=== PATIENT | female | born 1930 | race Caucasian/White ===

== ENCOUNTER 2016-04-22 12:25 | Inpatient (IN) | payer MEDICARE ==
--- NOTE | 2016-04-22 13:34 | XR ---
EXAMINATION TYPE: XR chest 1V portable DATE OF EXAM: 04/22/2016 1:21 PM COMPARISON: Prior chest x-ray 22 January 2015 HISTORY: Dysrhythmia, shortness of breath TECHNIQUE: Single frontal view of the chest is obtained. FINDINGS: Heart is enlarged. There are overlying cardiac leads. Basilar increased density present in the retrocardiac location. There is no evident pneumothorax. Pulmonary vascularity and efrem are stab le. Interstitium is prominent. Focal density present in the right mid lung as on prior exam consisten t with old granulomatous disease. IMPRESSION: Correlate for left lower lobe atelectasis versus pneumonia. There may be underlying COPD . Difficult to exclude pulmonary venous hypertension and interstitial edema.
[2016-04-22] MEDS ORDERED: ENOXAPARIN 80 MG/0.8 ML SYRINGE SQ STA (13:39)
[2016-04-22] MEDS ORDERED: DILTIAZEM 5 MG/ML 5 ML VIAL IVP STA (13:40)
[2016-04-22 13:55] LABS: Basophils % (A) 1 %; Eosinophils # (A) 0.1 k/uL (0-0.7); Eosinophils % (A) 1 %; HCT 43.2 % (34.0-46.0); HDW 2.85; HGB 13.8 gm/dL (11.4-16.0); Luc # (Auto) 0.16; Luc % (Auto) 3; Lymphocytes # (A) 1.1 k/uL (1.0-4.8); Lymphocytes % (A) 18 %; MCH 29.1 pg (25.0-35.0); MCHC 31.9 g/dL (31.0-37.0); MCV 91.5 fL (80.0-100.0); Mean Platelet Volume 9.2; Monocytes # (A) 0.5 k/uL (0-1.0); Monocytes % (A) 8 %; Neutrophils # (A) 4.2 k/uL (1.3-7.7); Neutrophils % (A) 69 %; RBC 4.72 m/uL (3.80-5.40); RDW 15.4 % (11.5-15.5); WBC (Perox) 5.84
[2016-04-22 14:05] LABS: ALT 48 U/L (9-52); AST 41 U/L (14-36); Alkaline Phosphatase 94 U/L (38-126); Anion Gap 11 mmol/L; Blood Urea Nitrogen 29 mg/dL (7-17); Calcium 9.6 mg/dL (8.4-10.2); Carbon Dioxide 24 mmol/L (22-30); Chloride 109 mmol/L (98-107); Glucose 106 mg/dL (74-99); INR 1.1 (<1.1); Magnesium 1.8 mg/dL (1.6-2.3); Non-African American GFR(MDRD) 54 (>60 ml/min/1.73 sqM); Partial Thromboplastin Time 23.5 sec (22.0-30.0); Potassium 4.4 mmol/L (3.5-5.1); Prothrombin Time 10.7 sec (9.0-12.0); Sodium 144 mmol/L (137-145); Total Bilirubin 0.7 mg/dL (0.2-1.3); Total Protein 6.5 g/dL (6.3-8.2)
[2016-04-22] MEDS: DILTIAZEM 125 MG in SODIUM CHLORIDE 0.9% 100 ML IV ONE (14:13)
--- NOTE | 2016-04-22 15:12 | ED ---
Arrhythmia/Palpitations HPI - General Chief Complaint: Arrhythmia/Palpitations Stated Complaint: Palpitations Time Seen by Provider: 04/22/16 12:36 Source: patient Mode of arrival: wheelchair Limitations: no limitations - History of Present Illness Initial Comments: Patient is a 5-year-old woman who presents to be evaluated for a number of symptoms the most prominent which are generalized weakness and fatigue as well as shortness of breath. She also has been feeling a racing heartbeat at times. The symptoms have been going on last night though she states she may have been having episodes of this for the past few days intermittently. She has not had chest pain, diaphoresis, nausea or vomiting or syncope. MD Complaint: rapid heart beat -: hour(s) Context: occurred during exertion - Related Data Home Medications Medication Instructions Recorded Confirmed Biotin 5 mg PO DAILY 08/22/13 04/22/16 Calcium/Magnesium/Zinc 1 tab PO DAILY 08/22/13 04/22/16 [Ekqeglc-Nlzyxvrzg-Ujro Tablet] Lutein 10 mg PO DAILY 08/22/13 04/22/16 Multivitamins, Thera [Multivitamin] 1 tab PO DAILY 08/22/13 04/22/16 Ubidecarenone [Coenzyme Q10] 100 mg PO DAILY 08/22/13 04/22/16 Aspirin EC [Ecotrin Low Dose] 81 mg PO DAILY 04/22/16 04/22/16 Ginkgo Biloba [place] Extract [Ginkgo] 60 mg PO DAILY 04/22/16 04/22/16 Mirtazapine [Remeron] 15 mg PO HS 04/22/16 04/22/16 Previous Rx's Medication Instructions Recorded Atorvastatin [Lipitor] 80 mg PO HS #30 tab 08/30/13 Furosemide [Lasix] 20 mg PO BID #60 tablet 08/30/13 Lisinopril [Zestril] 5 mg PO DAILY #30 tab 08/30/13 Metoprolol Tartrate [Lopressor] 50 mg PO BID #60 tab 08/30/13 Potassium Chloride ER [K-Dur 20] 20 meq PO DAILY #30 tab.er.prt 08/30/13 Allergies Allergy/AdvReac Type Severity Reaction Status Date / Time No Known Allergies Allergy Verified 04/22/16 12:44 Review of Systems ROS Statement: Those systems with pertinent positive or pertinent negative responses have been documented in the HPI. ROS Other: All systems not noted in ROS Statement are negative. Constitutional: Reports: weakness. Denies: fever, chills Respiratory: Reports: dyspnea. Denies: cough, hemoptysis Cardiovascular: Reports: palpitations, dyspnea on exertion. Denies: chest pain , edema, syncope Gastrointestinal: Denies: abdominal pain, nausea, vomiting, diarrhea, melena, hematochezia Genitourinary: Denies: dysuria, hematuria Musculoskeletal: Denies: back pain Skin: Denies: rash Neurological: Denies: headache, weakness, numbness Past Medical History Past Medical History: Asthma, Hearing Disorder / Deafness, Hyperlipidemia, Hypertension Additional Past Medical History / Comment(s): Kidney infection History of Any Multi-Drug Resistant Organisms: None Reported Past Surgical History: Bladder Surgery, Hysterectomy, Tonsillectomy Additional Past Surgical History / Comment(s): Cataract removal with implants, colonoscopy Past Anesthesia/Blood Transfusion Reactions: No Reported Reaction Past Psychological History: Anxiety Smoking Status: Never smoker Past Alcohol Use History: None Reported Past Drug Use History: None Reported - Past Family History Mother Family Medical History: Cancer Father Additional Family Medical History / Comment(s): IN SLEEP IN [facility] Sister(s) Family Medical History: Seizure Disorder General Exam Limitations: no limitations General appearance: alert, in no apparent distress Head exam: Present: atraumatic, normocephalic Eye exam: Present: normal appearance. Absent: scleral icterus, conjunctival injection Neck exam: Present: normal inspection Respiratory exam: Present: normal lung sounds bilaterally. Absent: respiratory distress, wheezes, rales, rhonchi, stridor Cardiovascular Exam: Present: tachycardia, irregular rhythm, normal heart sounds. Absent: systolic murmur, diastolic murmur, rubs, gallop GI/Abdominal exam: Present: soft. Absent: tenderness, guarding, rebound, mass, pulsatile mass Extremities exam: Present: normal inspection, normal capillary refill. Absent: pedal edema, calf tenderness Back exam: Present: normal inspection. Absent: CVA tenderness (R), CVA tenderness (L) Neurological exam: Present: alert. Absent: motor sensory deficit Skin exam: Present: warm, dry, intact, normal color. Absent: rash, cyanosis, diaphoretic, pallor, mottled Course Vital Signs 04/22/16 04/22/1617 12:27 14:15 14:25 Temperature 97.8 F Pulse Rate 104 H 115 H 92 Respiratory 18 18 18 Rate Blood Pressure 146/91 162/91 153/72 O2 Sat by Pulse 95 97 97 Oximetry 04/22/16 15:20 Temperature Pulse Rate 89 Respiratory 18 Rate Blood Pressure 147/71 O2 Sat by Pulse 98 Oximetry EKG Findings - EKG Results: EKG: interpreted by ERMD, normal axis, normal QRS EKG shows: atrial fibrillation (Rate approximately 101 bpm) - Blocks, [place], Hypertrophy, ST Abn: Repolarization changes or abnormalities: ST or T wave suggestive of ischemia ( Inferolateral) Medical Decision Making - Medical Decision Making Patient is an 85-year-old woman with fatigue, palpitations and exertional dyspnea, found to have atrial fibrillation. The rate was rapid. Started on Cardizem which controlled her rate. In discussions with the patient she does not recall any previous atrial fibrillation. Discussed the case with the patient's physician who does indicate she has had previous paroxysms of atrial fibrillation. - Lab Data Result diagrams: 04/22/16 13:01 04/22/16 13:01 Lab Results 04/22/16 04/22/16 04/22/16 Range/Units 13:01 13:01 13:01 WBC 6.0 (3.8-10.6) k/uL RBC 4.72 (3.80-5.40) m/uL Hgb 13.8 (11.4-16.0) gm/dL Hct 43.2 (34.0-46.0) % MCV 91.5 (80.0-100.0) fL MCH 29.1 (25.0-35.0) pg MCHC 31.9 (31.0-37.0) g/dL RDW 15.4 (11.5-15.5) % Plt Count 160 (150-450) k/uL Neutrophils % 69 % Lymphocytes % 18 % Monocytes % 8 % Eosinophils % 1 % Basophils % 1 % Neutrophils # 4.2 (1.3-7.7) k/uL Lymphocytes # 1.1 (1.0-4.8) k/uL Monocytes # 0.5 (0-1.0) k/uL Eosinophils # 0.1 (0-0.7) k/uL Basophils # 0.0 (0-0.2) k/uL PT 10.7 (9.0-12.0) sec INR 1.1 (<1.1) APTT 23.5 (22.0-30.0) sec Sodium 144 (137-145) mmol/L Potassium 4.4 (3.5-5.1) mmol/L Chloride 109 H (98-107) mmol/L Carbon Dioxide 24 (22-30) mmol/L Anion Gap 11 mmol/L BUN 29 H (7-17) mg/dL Creatinine 0.97 (0.52-1.04) mg/dL Est GFR (MDRD) Af Amer >60 (>60 ml/min/1.73 sqM) Est GFR (MDRD) Non-Af 54 (>60 ml/min/1.73 sqM) Glucose 106 H (74-99) mg/dL Calcium 9.6 (8.4-10.2) mg/dL Magnesium 1.8 (1.6-2.3) mg/dL Total Bilirubin 0.7 (0.2-1.3) mg/dL AST 41 H (14-36) U/L ALT 48 (9-52) U/L Alkaline Phosphatase 94 (38-126) U/L Troponin I (0.000-0.034) ng/mL Total Protein 6.5 (6.3-8.2) g/dL Albumin 3.7 (3.5-5.0) g/dL 04/22/16 Range/Units 13:01 WBC (3.8-10.6) k/uL RBC (3.80-5.40) m/uL Hgb (11.4-16.0) gm/dL Hct (34.0-46.0) % MCV (80.0-100.0) fL MCH (25.0-35.0) pg MCHC (31.0-37.0) g/dL RDW (11.5-15.5) % Plt Count (150-450) k/uL Neutrophils % % Lymphocytes % % Monocytes % % Eosinophils % % Basophils % % Neutrophils # (1.3-7.7) k/uL Lymphocytes # (1.0-4.8) k/uL Monocytes # (0-1.0) k/uL Eosinophils # (0-0.7) k/uL Basophils # (0-0.2) k/uL PT (9.0-12.0) sec INR (<1.1) APTT (22.0-30.0) sec Sodium (137-145) mmol/L Potassium (3.5-5.1) mmol/L Chloride (98-107) mmol/L Carbon Dioxide (22-30) mmol/L Anion Gap mmol/L BUN (7-17) mg/dL Creatinine (0.52-1.04) mg/dL Est GFR (MDRD) Af Amer (>60 ml/min/1.73 sqM) Est GFR (MDRD) Non-Af (>60 ml/min/1.73 sqM) Glucose (74-99) mg/dL Calcium (8.4-10.2) mg/dL Magnesium (1.6-2.3) mg/dL Total Bilirubin (0.2-1.3) mg/dL AST (14-36) U/L ALT (9-52) U/L Alkaline Phosphatase (38-126) U/L Troponin I <0.012 (0.000-0.034) ng/mL Total Protein (6.3-8.2) g/dL Albumin (3.5-5.0) g/dL Critical Care Time Critical Care Time: Yes (30 Minutes) Disposition Clinical Impression: Atrial fibrillation Narrative: New-onset, rapid ventricular rate Disposition: ADMITTED IP TO THIS [facility] Condition: Fair
[2016-04-22] MEDS: ENOXAPARIN 80 MG/0.8 ML SYRINGE SQ SCH (21:13)
[2016-04-22] MEDS: FUROSEMIDE 20 MG TAB PO SCH (21:14)
[2016-04-22] MEDS: MIRTAZAPINE 15 MG TAB PO SCH (21:14)
[2016-04-22] MEDS: METOPROLOL TARTRATE 50 MG TAB PO SCH (21:14)
[2016-04-22] MEDS: ATORVASTATIN 80 MG TAB PO SCH (21:14)
[2016-04-23] MEDS: FUROSEMIDE 20 MG TAB PO SCH (08:30)
[2016-04-23] MEDS: ENOXAPARIN 80 MG/0.8 ML SYRINGE SQ SCH ×2 (08:30→21:43)
[2016-04-23] MEDS: METOPROLOL TARTRATE 50 MG TAB PO SCH ×2 (08:31→21:44)
[2016-04-23] MEDS: MULTIVITAMINS, THERA 1 EACH TAB PO SCH (08:31)
[2016-04-23 08:42] VITALS: RESP 18
[2016-04-23] MEDS ORDERED: NON-FORMULARY DRUG (Lutein [Lutein] 10 MG) PO SCH (09:00)
[2016-04-23] MEDS ORDERED: NON-FORMULARY DRUG (Biotin [Biotin] 5 MG) PO SCH (09:00)
[2016-04-23] MEDS ORDERED: UBIDECARENONE 100 MG PO SCH (09:00)
[2016-04-23] MEDS ORDERED: POTASSIUM CHLORIDE ER 20 MEQ TAB.ER PO SCH (09:00)
[2016-04-23] MEDS: ZINC GLUCONATE 50 MG TAB PO SCH (09:41)
[2016-04-23] MEDS: CALCIUM CARBONATE 500 MG CHEWABLE PO SCH (09:41)
[2016-04-23] MEDS: LISINOPRIL 5 MG TAB PO SCH (09:41)
[2016-04-23] MEDS: ASPIRIN 325 MG TAB PO SCH (09:41)
[2016-04-23] MEDS: MAGNESIUM OXIDE 250 MG TAB PO SCH (09:42)
[2016-04-23] MEDS: DILTIAZEM 125 MG in SODIUM CHLORIDE 0.9% 100 ML IV ONE (09:42)
--- NOTE | 2016-04-23 14:03 | P.HPIM ---
History of Present Illness H&P Date: 04/23/16 Chief Complaint: Atrial fibrillation with rapid ventricular response/acute diastolic failure This is an 85 rolled female one of my patient with a previous medical history significant for two-vessel CAD post non-ST elevation TN back in 2013 with the PCI of the mid to distal RCA, and totally occluded LAD chronically, hypertension and hypertensive cardio vascular disease with left ventricular hypertrophy, GERD, diverticular disease, urinary incontinence, chronic systolic heart failure, I haven't seen the patient for the past 8 months, patient was supposed to be following with however she dropped her follow-up appointment as well patient apparently stated that she has been doing fine up until 4 days ago when she developed to have increased thumping in her heart associated with increased shortness breath with minimal swelling in both lower extremities, as a stated earlier patient has not been following up with me in the office for the past 8 months, patient ended up coming to the emergency department at [facility] yesterday she was found to be in atrial fibrillation with rapid ventricular response, she was started on Cardizem drip and she was admitted to the hospital for acute systolic heart failure. Echocardiogram will be obtained. Review of Systems Constitutional: Denies anorexia, Denies chills, Denies chronic headaches, Denies lethargy, Denies malaise, Denies weight gain, Denies weight loss Eyes: denies blurred vision, denies bulging eye, denies decreased vision, denies diplopia, denies discharge Ears, nose, mouth and throat: Denies dysphagia, Denies neck lump, Denies swelling in throat, Denies sore throat Cardiovascular: Reports decreased exercise tolerance, Reports dyspnea on exertion, Reports high blood pressure, Reports irregular heart beat, Reports rapid heart beat, Reports shortness of breath, Denies chest pain, Denies syncope Respiratory: Reports cough, Reports dyspnea, Denies congestion, Denies cough with sputum, Denies home oxygen, Denies sleep apnea, Denies snoring, Denies wheezing Gastrointestinal: Reports nausea, Denies abdominal pain, Denies bloating, Denies BRBPR, Denies excessive gas, Denies heartburn, Denies melena, Denies vomiting Genitourinary: Denies dysuria, Denies hematuria Menstruation: Reports post hysterectomy, Reports postmenopausal Musculoskeletal: Denies myalgias Musculoskeletal: absent: ankle pain, ankle stiffness, ankle swelling, elbow pain , elbow stiffness, elbow swelling, foot pain, foot stiffness, foot swelling, hand pain, hand stiffness, hand swelling, hip pain, hip stiffness, hip swelling , knee pain, knee stiffness, knee swelling, shoulder pain, shoulder stiffness, shoulder swelling, wrist pain, wrist stiffness, wrist swelling Integumentary: Denies pruritus, Denies rash Neurological: Denies numbness, Denies weakness Psychiatric: Denies anxiety, Denies depression Endocrine: Denies fatigue, Denies weight change Past Medical History Past Medical History: Atrial Fibrillation, Asthma, Coronary Artery Disease (CAD) , Heart Failure, Hearing Disorder / Deafness, Hyperlipidemia, Hypertension, Myocardial Infarction (non Q-wave) Additional Past Medical History / Comment(s): Kidney infection Last Myocardial Infarction Date:: 2013 History of Any Multi-Drug Resistant Organisms: None Reported Past Surgical History: Bladder Surgery, Heart Catheterization With Stent, Hysterectomy, Tonsillectomy Additional Past Surgical History / Comment(s): Cataract removal with implants, colonoscopy, left heart catheterization with the PCI of the RCA back in August 2013. Past Anesthesia/Blood Transfusion Reactions: No Reported Reaction Date of Last Stent Placement:: 08-29-13 Past Psychological History: Anxiety Smoking Status: Never smoker Past Alcohol Use History: None Reported Past Drug Use History: None Reported - Past Family History Father Additional Family Medical History / Comment(s): IN SLEEP IN [facility] Sister(s) Family Medical History: Seizure Disorder Mother Family Medical History: Cancer Additional Family Medical History / Comment(s): HEART DISEASE Daughter(s) Family Medical History: No Reported History (Patient has 2 daughters no major medical problems.) Medications and Allergies Home Medications Medication Instructions Recorded Confirmed Type Biotin 5 mg PO DAILY 08/22/13 04/22/16 History Calcium/Magnesium/Zinc 1 tab PO DAILY 08/22/13 04/22/16 History [Jvigahr-Bzjjfoiil-Dfgg Tablet] Lutein 10 mg PO DAILY 08/22/13 04/22/16 History Multivitamins, Thera [Multivitamin] 1 tab PO DAILY 08/22/13 04/22/16 History Ubidecarenone [Coenzyme Q10] 100 mg PO DAILY 08/22/13 04/22/16 History Aspirin EC [Ecotrin Low Dose] 81 mg PO DAILY 04/22/16 04/22/16 History Ginkgo Biloba [place] Extract [Ginkgo] 60 mg PO DAILY 04/22/16 04/22/16 History Mirtazapine [Remeron] 15 mg PO HS 04/22/16 04/22/16 History Allergies Allergy/AdvReac Type Severity Reaction Status Date / Time No Known Allergies Allergy Verified 04/22/16 12:44 Physical Exam Vitals: Vital Signs Temp Pulse Pulse Resp BP BP Pulse Ox 04/23/16 12:00 97.6 F 77 18 149/77 95 04/23/16 08:00 97 F L 79 18 138/66 95 04/23/16 03:52 96.9 F L 100 16 152/79 95 04/23/16 00:00 80 16 127/66 93 L 04/22/16 19:59 97.8 F 85 18 140/68 95 04/22/16 16:15 96.5 F L 81 18 167/72 98 04/22/16 15:55 97 F L 85 18 160/76 97 04/22/16 15:20 89 18 147/71 98 Intake and Output 04/22/16 04/23/16 04/23/16 22:59 06:59 14:59 Intake Total 465 252 377.417 Output Total 100 200 Balance 365 52 377.417 Intake: IV 225 252 40 0.9@75 225 252 Diltiazem 125 mg In 40 Sodium Chloride 0.9% 100 ml @ 5 MG/HR 5 mls/hr IV .Q24H ONE Rx#:[id number] Intake, IV Titration 97.417 Amount Diltiazem 125 mg In 97.417 Sodium Chloride 0.9% 100 ml @ 5 MG/HR 5 mls/hr IV .Q24H ONE Rx#:[id number] Oral 240 240 Output: Urine 100 200 Other: # Voids 1 0 Weight 67.6 kg - Constitutional General appearance: average body habitus, mild distress - EENT Eyes: anicteric sclerae, PERRLA, no ptosis, no scleral icterus, normal appearance ENT: hard of hearing, normal oropharynx, no thrush Ears: bilateral: normal - Neck Neck: no lymphadenopathy, normal ROM, no rigidity, no stridor, no thyromegaly Carotids: bilateral: upstroke delayed Thyroid: bilateral: normal size - Respiratory Respiratory: bilateral: diminished, rales, negative: dullness, rhonchi, wheezing , prolonged expiration - Cardiovascular Rhythm: irregularly irregular Heart sounds: normal: S1, S2 Abnormal Heart Sounds: systolic murmur - Gastrointestinal General gastrointestinal: normal bowel sounds, soft, no splenomegaly, no tenderness, no umbilical hernia, no ventral hernia - Integumentary Integumentary: normal, normal turgor - Neurologic Neurologic: CNII-XII intact - Musculoskeletal Musculoskeletal: generalized weakness, strength equal bilaterally - Psychiatric Psychiatric: A&O x's 3, appropriate affect, intact judgment & insight Results CBC & Chem 7: 04/22/16 13:01 04/22/16 13:01 Thrombosis Risk Factor Assmnt - DVT/VTE Prophylaxis DVT/VTE Prophylaxis: Pharmacologic Prophylaxis ordered, Mechanical Prophylaxis ordered - Choose All That Apply Any of the Below Risk Factors Present?: Yes Other Risk Factors: Yes Each Risk Factor Represents 3 Points: Age 75 years or older Other congenital or acquired thrombophilia - If yes, enter type in comment: No Thrombosis Risk Factor Assessment Total Risk Factor Score: 3 Thrombosis Risk Factor Assessment Level: Moderate Risk Assessment and Plan Plan: Assessment and plan: 1. Acute systolic heart failure on chronic systolic heart failure. Start Lasix 40 mg IV push every 12 hours, metoprolol 50 mg orally twice every day, lisinopril 5 mg orally once every day, spironolactone 12.5 mg orally once every day, potassium supplement, echocardiogram for evaluation of LV function, input and output and daily weight, portable chest x-ray tomorrow morning, spoke with her daughter the bedside. 2. Atrial fibrillation with rapid ventricular response. Continue metoprolol 50 mg orally twice every day, continue Lovenox 70 mg subcutaneously every 12 hours, switched to Eliquis 2.5 mg orally twice every 24 hours. 3. Two-vessel CAD post-PCI of the RCA and a chronically occluded LAD. Continue metoprolol 50 mg orally twice every day, lisinopril 5 mg orally once every day, Lipitor 80 mg orally once every day, aspirin 325 mg orally once every day. 4. Hypertension and hypertensive cardiovascular disease. Continue lisinopril 5 mg orally once every day, metoprolol 50 mg orally twice every day. 5. Hyperlipidemia. Continue Lipitor 40 mg orally once every day. 6. Urinary incontinence. Monitor the patient. 7. Osteoarthritis. Clinically stable. 8. DVT prophylaxis. On Lovenox 9. GI prophylaxis. Continue patient on Protonix 40 mg orally once every day. 10. Patient is a full code. 11. Admitted to inpatient, estimated length of stay 2 midnights.
[2016-04-23 14:11] VITALS: BMI 24.7
[2016-04-23] MEDS: FUROSEMIDE 10 MG/ML 4 ML VIAL IV SCH ×2 (14:30→21:42)
[2016-04-23] MEDS: SPIRONOLACTONE 25 MG TAB PO SCH (14:30)
--- NOTE | 2016-04-23 16:15 | P.CRDCN ---
History of Present Illness Consult date: 04/23/16 Reason for Consult (text): New onset Atrial Fibrillation Chief complaint: fatigue, shortness of breath, rapid heart beat History of present illness: This is a pleasant 85-year-old female who follows with Dr. Ronquillo in the office. Has a known history of hyperlipidemia, hypertension, non-ST elevated DC with stent placement to the RCA in 2013 and rectal bleeding while on aspirin and Plavix. Patient presented to the emergency department with complaints of generalized weakness and fatigue as well as episodes of shortness of breath and rapid heartbeat for several days. Upon presentation, patient was found to be in atrial fibrillation which is likely new for her. Chest x-ray done showed possible underlying COPD, left lower lobe atelectasis versus pneumonia and is difficult to exclude pulmonary venous hypertension and interstitial edema. EKG showed atrial fibrillation with a rate around [address]-T wave abnormalities. Laboratory values showed a BUN of 29 creatinine 0.97 and a form less than 0.012. Upon examination, patient is resting comfortably sitting up on the edge of the bed. She denies complaints of shortness of breath, chest discomfort, palpitations, dizziness, lightheadedness, syncope or edema. Early on Lovenox as well as Cardizem drip at 5. She is on metoprolol tartrate 50 mg by mouth twice a day. Past Medical History Past Medical History: Asthma, Hearing Disorder / Deafness, Hyperlipidemia, Hypertension Additional Past Medical History / Comment(s): Kidney infection Last Myocardial Infarction Date:: 2013 History of Any Multi-Drug Resistant Organisms: None Reported Past Surgical History: Bladder Surgery, Hysterectomy, Tonsillectomy Additional Past Surgical History / Comment(s): Cataract removal with implants, colonoscopy Past Anesthesia/Blood Transfusion Reactions: No Reported Reaction Date of Last Stent Placement:: 08-29-13 Past Psychological History: Anxiety Smoking Status: Never smoker Past Alcohol Use History: None Reported Past Drug Use History: None Reported - Past Family History Father Additional Family Medical History / Comment(s): IN SLEEP IN ECF Sister(s) Family Medical History: Seizure Disorder Mother Family Medical History: Cancer Additional Family Medical History / Comment(s): HEART DISEASE Daughter(s) Family Medical History: No Reported History (Patient has 2 daughters no major medical problems.) Medications and Allergies Home Medications Medication Instructions Recorded Confirmed Type Biotin 5 mg PO DAILY 08/22/13 04/22/16 History Calcium/Magnesium/Zinc 1 tab PO DAILY 08/22/13 04/22/16 History [Rjtehxi-Aznnihclz-Fvgx Tablet] Lutein 10 mg PO DAILY 08/22/13 04/22/16 History Multivitamins, Thera [Multivitamin] 1 tab PO DAILY 08/22/13 04/22/16 History Ubidecarenone [Coenzyme Q10] 100 mg PO DAILY 08/22/13 04/22/16 History Aspirin EC [Ecotrin Low Dose] 81 mg PO DAILY 04/22/16 04/22/16 History Ginkgo Biloba [place] Extract [Ginkgo] 60 mg PO DAILY 04/22/16 04/22/16 History Mirtazapine [Remeron] 15 mg PO HS 04/22/16 04/22/16 History Allergies Allergy/AdvReac Type Severity Reaction Status Date / Time No Known Allergies Allergy Verified 04/22/16 12:44 Physical Exam Vitals: Vital Signs Temp Pulse Pulse Resp BP BP Pulse Ox 04/23/16 12:00 97.6 F 77 18 149/77 95 04/23/16 08:00 97 F L 79 18 138/66 95 04/23/16 03:52 96.9 F L 100 16 152/79 95 04/23/16 00:00 80 16 127/66 93 L 04/22/16 19:59 97.8 F 85 18 140/68 95 04/22/16 16:15 96.5 F L 81 18 167/72 98 04/22/16 15:55 97 F L 85 18 160/76 97 04/22/16 15:20 89 18 147/71 98 Intake and Output 04/22/16 04/23/16 04/23/16 22:59 06:59 14:59 Intake Total 465 252 257.417 Output Total 100 200 Balance 365 52 257.417 Intake: IV 225 252 40 0.9@75 225 252 Diltiazem 125 mg In 40 Sodium Chloride 0.9% 100 ml @ 5 MG/HR 5 mls/hr IV .Q24H ONE Rx#:[id number] Intake, IV Titration 97.417 Amount Diltiazem 125 mg In 97.417 Sodium Chloride 0.9% 100 ml @ 5 MG/HR 5 mls/hr IV .Q24H ONE Rx#:[id number] Oral 240 120 Output: Urine 100 200 Other: # Voids 1 0 Weight 67.6 kg PHYSICAL EXAMINATION: HEENT: Head is atraumatic, normocephalic. Pupils equal, round. Neck is supple. There is no elevated jugular venous pressure. HEART EXAMINATION: Heart sounds irregularly irregular, S1 and S2 with a systolic murmur. CHEST EXAMINATION: Lungs are clear to auscultation and precussion. No chest wall tenderness is noted on palpation or with deep breathing. ABDOMEN: Soft, nontender. Bowel sounds are heard. No organomegaly noted. EXTREMITIES: 2+ peripheral pulses with no evidence of peripheral edema and no calf tenderness noted. NEUROLOGIC patient is awake, alert and oriented x3. . Results 04/22/16 13:01 04/22/16 13:01 Current Medications Generic Name Dose Route Start Last Admin Trade Name Freq PRN Reason Stop Dose Admin Aspirin 325 mg 04/23/16 09:00 04/23/16 09:41 Aspirin PO 325 mg DAILY ESTUARDO Administration Atorvastatin Calcium 80 mg 04/22/16 21:00 04/22/16 21:14 Lipitor PO 80 mg HS ESTUARDO Administration Calcium Carbonate/Glycine 500 mg 04/23/16 09:00 04/23/16 09:41 Tums PO 500 mg DAILY ESTUARDO Administration Enoxaparin Sodium 70 mg 04/22/16 21:00 04/23/16 08:30 Lovenox SQ 70 mg Q12H ESTUARDO Administration Furosemide 20 mg 04/22/16 16:00 04/23/16 08:30 Lasix PO 20 mg BID@0900,1600 ESTUARDO Administration Diltiazem HCl 125 mg/ Sodium 125 mls @ 5 mls/hr 04/22/16 13:40 04/23/16 09:42 Chloride IV 04/23/16 13:39 5 mg/hr .Q24H ONE 5 mls/hr 5 MG/HR Administration Lisinopril 5 mg 04/23/16 09:00 04/23/16 09:41 Zestril PO 5 mg DAILY ESTUARDO Administration Magnesium Oxide 250 mg 04/23/16 09:00 04/23/16 09:42 Mag-Ox PO 250 mg DAILY ESTUARDO Administration Metoprolol Tartrate 50 mg 04/22/16 21:00 04/23/16 08:31 Lopressor PO 50 mg BID ESTUARDO Administration Mirtazapine 15 mg 04/22/16 21:00 04/22/16 21:14 Remeron PO 15 mg HS ESTUARDO Administration Multivitamins 1 each 04/23/16 09:00 04/23/16 08:31 Theragran PO 1 each DAILY ESTUARDO Administration Potassium Chloride 20 meq 04/23/16 09:00 04/23/16 08:30 K-Dur 20 PO 20 meq DAILY ESTUARDO Administration Zinc Gluconate 50 mg 04/23/16 09:00 04/23/16 09:41 Zinc PO 50 mg DAILY ESTUARDO Administration Intake and Output 04/22/16 04/23/16 04/23/16 22:59 06:59 14:59 Intake Total 465 252 257.417 Output Total 100 200 Balance 365 52 257.417 Intake: IV 225 252 40 0.9@75 225 252 Diltiazem 125 mg In 40 Sodium Chloride 0.9% 100 ml @ 5 MG/HR 5 mls/hr IV .Q24H ONE Rx#:[id number] Intake, IV Titration 97.417 Amount Diltiazem 125 mg In 97.417 Sodium Chloride 0.9% 100 ml @ 5 MG/HR 5 mls/hr IV .Q24H ONE Rx#:[id number] Oral 240 120 Output: Urine 100 200 Other: # Voids 1 0 Weight 67.6 kg EKG Interpretations (text) Atrial fibrillation with nonspecific ST-T wave abnormalities Assessment and Plan Plan: Assessment and plan #1 hypertension #2 hyperlipidemia #3 new onset atrial fibrillation #4 coronary artery disease with prior DC and stent placement to the RCA 2013 #5 history of rectal bleeding on aspirin and Plavix From cardiac standpoint, we will obtain a TSH. Will stop Cardizem drip and continue metoprolol. We will obtain a 2-D echo with Doppler to assess LV function. We'll obtain a GI consult for further workup of prior GI bleed. Further recommendations to follow. ELECTRIC PLATER note has been reviewed, I agree with a documented findings and plan of care. Patient was seen and examined.
[2016-04-23] MEDS: ATORVASTATIN 80 MG TAB PO SCH (21:43)
[2016-04-23] MEDS: MIRTAZAPINE 15 MG TAB PO SCH (21:44)
[2016-04-23] MEDS: POTASSIUM CHLORIDE ER 20 MEQ TAB.ER PO SCH (21:44)
[2016-04-24 05:53] LABS: Basophils # (A) 0.1 k/uL (0-0.2); Basophils % (A) 1 %; CH 29.8; CHCM 33.1; Eosinophils # (A) 0.2 k/uL (0-0.7); Eosinophils % (A) 3 %; HCT 43.8 % (34.0-46.0); HDW 2.82; HGB 13.9 gm/dL (11.4-16.0); Luc # (Auto) 0.14; Luc % (Auto) 3; Lymphocytes # (A) 1.2 k/uL (1.0-4.8); Lymphocytes % (A) 23 %; MCH 28.8 pg (25.0-35.0); MCHC 31.8 g/dL (31.0-37.0); MCV 90.7 fL (80.0-100.0); Mean Platelet Volume 8.7; Monocytes # (A) 0.5 k/uL (0-1.0); Monocytes % (A) 10 %; Neutrophils # (A) 3.3 k/uL (1.3-7.7); Neutrophils % (A) 61 %; RBC 4.83 m/uL (3.80-5.40); RDW 15.3 % (11.5-15.5); WBC 5.4 k/uL (3.8-10.6); WBC (Perox) 5.11
[2016-04-24 06:43] LABS: Calcium 9.1 mg/dL (8.4-10.2); Magnesium 1.7 mg/dL (1.6-2.3); Potassium 3.7 mmol/L (3.5-5.1); Total Bilirubin 0.8 mg/dL (0.2-1.3); Total Protein 6.5 g/dL (6.3-8.2)
[2016-04-24] MEDS: ASPIRIN 325 MG TAB PO SCH (08:45)
[2016-04-24] MEDS: MAGNESIUM OXIDE 250 MG TAB PO SCH (08:45)
[2016-04-24] MEDS: ENOXAPARIN 80 MG/0.8 ML SYRINGE SQ SCH (08:45)
[2016-04-24] MEDS: FUROSEMIDE 10 MG/ML 4 ML VIAL IV SCH (08:46)
[2016-04-24] MEDS: METOPROLOL TARTRATE 50 MG TAB PO SCH ×3 (08:46→21:56)
[2016-04-24] MEDS: SPIRONOLACTONE 25 MG TAB PO SCH (08:47)
[2016-04-24] MEDS: ZINC GLUCONATE 50 MG TAB PO SCH (08:47)
[2016-04-24] MEDS: POTASSIUM CHLORIDE ER 20 MEQ TAB.ER PO SCH ×2 (08:47→21:55)
[2016-04-24] MEDS: MULTIVITAMINS, THERA 1 EACH TAB PO SCH (08:47)
[2016-04-24] MEDS: CALCIUM CARBONATE 500 MG CHEWABLE PO SCH (08:48)
[2016-04-24] MEDS: LISINOPRIL 5 MG TAB PO SCH (08:48)
--- NOTE | 2016-04-24 09:32 | P.PN ---
Subjective Principal diagnosis: Atrial fibrillation/CHF This is a pleasant 85-year-old female patient with a past medical history significant for CAD and prior stenting of the RCA was performed in 2013 , valvular heart disease, hypertension, and dyslipidemia, presented to the hospital complaining of shortness of breath and rapid heart beats. The patient was found to be in A. fib with RVR which seems to be of new onset. Also she was diagnosed was mild CHF and started on Lasix IV. I'll follow-up with her today, she continues to be feeding heart racing and heart fluttering with walking to the bathroom. The resting heart rate has been between 100 210 beats permanent and she continues to be in atrial fibrillation. The blood pressure is within normal limits. I would increase the dose of metoprolol to 50 mg by mouth 3 times a day for better heart rate control, the patient is not a candidate to receive any anticoagulation because of history of GI bleeding, and we will follow-up on the echocardiogram which was performed on not read yet. Objective - Vital Signs Vital signs: Vital Signs Temp 96.4 F L 04/24/16 08:00 Pulse 105 H 04/24/16 08:00 Resp 18 04/24/16 08:00 BP 120/58 04/24/16 08:00 Pulse Ox 94 L 04/24/16 08:00 Intake & Output 04/23/16 04/24/16 04/24/16 18:59 06:59 18:59 Intake Total 377.417 Output Total 800 Balance -422.583 Weight 67.6 kg 67.4 kg Intake: IV 40 Diltiazem 125 mg In 40 Sodium Chloride 0.9% 100 ml @ 5 MG/HR 5 mls/hr IV .Q24H ONE Rx#:[id number] Intake, IV Titration 97.417 Amount Diltiazem 125 mg In 97.417 Sodium Chloride 0.9% 100 ml @ 5 MG/HR 5 mls/hr IV .Q24H ONE Rx#:[id number] Oral 240 Output: Urine 800 Other: # Voids 1 1 - Constitutional General appearance: Present: no acute distress - Respiratory Respiratory: bilateral: CTA - Cardiovascular Rhythm: irregularly irregular Heart sounds: normal: S1, S2 Abnormal Heart Sounds: Present: systolic murmur - Labs CBC & Chem 7: 04/24/16 05:25 04/24/16 05:25 Labs: Abnormal Lab Results - Last 24 Hours (Table) 04/24/16 04/24/16 Range/Units 05:25 05:25 Plt Count 146 L (150-450) k/uL Carbon Dioxide 31 H (22-30) mmol/L BUN 27 H (7-17) mg/dL Creatinine 1.13 H (0.52-1.04) mg/dL AST 37 H (14-36) U/L Assessment and Plan Plan: Assessment #1 A. fib with slightly uncontrolled heart rate #2 mild congestive heart failure exacerbation and known if it's due to systolic or diastole dysfunction. #3 valvular heart disease #4 systemic hypertension Plan #1 increase the dose of metoprolol to 50 mg by mouth 3 times a day #2 stop the Lasix IV and start the patient on Lasix by mouth #3 follow-up with the echocardiogram
--- NOTE | 2016-04-24 11:14 | CONS ---
DATE OF CONSULTATION: 04/24/2016 REASON FOR CONSULTATION: Rectal bleeding. HISTORY OF PRESENT ILLNESS: The patient is an 85-year-old pleasant lady who was admitted to the hospital because of palpitations, some shortness of breath and not feeling well for the last 3 or 4 days duration. After she was admitted to the hospital, she was noted to have A. fib with rapid ventricular heart rate and was started on Cardizem drip and was also noted to be in congestive heart failure. The reason we are consulted is because of intermittent rectal bleeding that she has been having of the last years' duration. She states that she has about 3 to 4 bowel movements every day and at least once or twice she has small amount of blood on the toilet paper after she wipes. She hardly ever sees any blood in the stool. This has been going on for the last years' duration. She does not recall ever having a colonoscopy done but she is not very sure about this. I reviewed the records for the last 3 years ago at [facility] and did not find any previous colonoscopy report. She presently denies any abdominal pain. She reports no fever, chills, night sweats. No nausea, no vomiting. PAST MEDICAL HISTORY: Significant for coronary artery disease, chronic A. fib, asthma, congestive heart failure, diabetes mellitus, hypertension, hypercholesterolemia. PAST SURGICAL HISTORY: Bladder surgery, hysterectomy, tonsillectomy, cardiac cath, bilateral cataract surgery. Medications at home include calcium, magnesium, zinc tablet, multivitamin, Co-enzyme Q10, baby aspirin, Remeron. ALLERGIES: None. SOCIAL HISTORY: No smoking. No alcohol use. FAMILY HISTORY: [facility] had [facility]. Mother had coronary artery disease. REVIEW OF SYSTEMS: CARDIOPULMONARY: She denies any chest pain today or shortness of breath. GENITOURINARY: She denies any dysuria or hematuria. MUSCULOSKELETAL: She does complain of some back pain. NEUROLOGY: Unremarkable. PSYCHIATRIC: Unremarkable. GI: As mentioned above. ENT/VISION: Unremarkable. CONSTITUTIONAL: No recent weight loss. No fever, chills, night sweats. ENDOCRINE: Unremarkable. HEMATOLOGY: Unremarkable. On physical examination, she appears comfortable in no apparent distress. Vital signs are stable. Blood pressure is 140/79, pulse rate 90, temperature 97. HEENT examination unremarkable. Conjunctivae pink. Sclerae anicteric. Oral cavity, no lesions. NECK: No JVD or lymph node enlargement. CHEST: Clear to auscultation HEART: Regular rate and rhythm. ABDOMEN: Soft. Bowel sounds are positive. No organomegaly. EXTREMITIES: No pedal edema. SKIN: No rashes. NEURO: Alert and oriented x3. No focal deficits. LABS: Hemoglobin 13.9, WBC 5.4, platelets 146. BUN 27, creatinine 1.13. PT, INR is 1.1. IMPRESSION: 1. Intermittent rectal bleeding for the last 2 days' duration. She has about 3 to 4 bowel movements daily and small smear of blood on the toilet tissue paper following her bowel movement. She does not recall having a colonoscopy in the past, but she is not sure about this fact. Review of the records from [facility] for the last 3 years did not show any colonoscopies that were done here. She is hemodynamically stable, clinically does not have any active bleeding and her hemoglobin stable at 14.3 g/dL. 2. Atrial fibrillation with rapid ventricular heart rate presently on IV Cardizem drip. She was started on anticoagulation with Lovenox and aspirin. RECOMMENDATIONS: 1. Continue with anticoagulation as recommended by Cardiology. 2. I will review her records from our office to see if she had a colonoscopy in the last 5 years. 3. If she never had a colonoscopy in the past, I would recommend this. This can be done on an outpatient basis or in the hospital if she has anymore more active bleeding. 4. I had a lengthy discussion with the patient regarding this plan and she is agreeable to it. For now, I will follow her closely during her hospital stay. Thank you for this consultation.
--- NOTE | 2016-04-24 11:36 | ECHOF ---
Referral Reason:CHF MEASUREMENTS -------- HEIGHT: 165.1 cm WEIGHT: 67.6 kg BP: 149/77 RVIDd: 2.4 cm (< 3.3) IVSd: 1.2 cm (0.6 - 1.1) LVIDd: 4.2 cm (3.9 - 5.3) LVPWd: 1.2 cm (0.6 - 1.1) IVSs: 1.9 cm LVIDs: 3.1 cm LVPWs: 1.5 cm LA Diam: 2.9 cm (2.7 - 3.8) Ao Diam: 3.6 cm (2.0 - 3.7) AV Cusp: 1.4 cm (1.5 - 2.6) MV EXCURSION: 12.451 mm (> 18.000) MV EF SLOPE: 66 mm/s (70 - 150) EPSS: 0.6 cm AR PHT: 564 ms RAP: 5.00 mmHg RVSP: 58.46 mmHg FINDINGS -------- Atrial fibrillation. This was a technically good study. The left ventricular size is normal. There is borderline concentric left ventricular hypertrophy. Overall left ventricular systolic function is mildly impaired with, an EF between 45 - 50 %. Basal inferior LV wall motion is hypokinetic. Basal inferoseptal LV wall motion is hypokinetic. Mid inferior LV wall motion is hypokinetic. Mid inferoseptal LV wall motion is hypokinetic. The right ventricle is normal in size and function. The left atrial size is normal. The right atrium is normal in size. There is mild to moderate aortic valve sclerosis. There is mild aortic regurgitation. The mitral valve leaflets are mildly thickened. Moderate mitral annular calcification present. [id number] mitral regurgitation is present. Mild tricuspid regurgitation present. There is severe pulmonary hypertension. The right ventricular systolic pressure, as measured by Doppler, is 58.46mmHg. Trace/mild (physiologic) pulmonic regurgitation. The aortic root size is normal. The inferior vena cava is mildly dilated. There is no pericardial effusion. Moderate Pleural Effusion. CONCLUSIONS -------- 1. Atrial fibrillation. 2. The right ventricle is normal in size and function. 3. The left atrial size is normal. 4. The right atrium is normal in size. 5. There is mild to moderate aortic valve sclerosis. 6. There is mild aortic regurgitation. 7. The mitral valve leaflets are mildly thickened. 8. Moderate mitral annular calcification present. 9. [id number] mitral regurgitation is present. 10. Mild tricuspid regurgitation present. 11. There is severe pulmonary hypertension. 12. This was a technically good study. 13. The right ventricular systolic pressure, as measured by Doppler, is 58.46mmHg. 14. Trace/mild (physiologic) pulmonic regurgitation. 15. The aortic root size is normal. 16. The inferior vena cava is mildly dilated. 17. There is no pericardial effusion. 18. Moderate Pleural Effusion. 19. The left ventricular size is normal. 20. There is borderline concentric left ventricular hypertrophy. 21. Overall left ventricular systolic function is mildly impaired with, an EF between 45 - 50 %. 22. Basal inferior LV wall motion is hypokinetic. 23. Basal inferoseptal LV wall motion is hypokinetic. 24. Mid inferior LV wall motion is hypokinetic. 25. Mid inferoseptal LV wall motion is hypokinetic. INSURANCE BILLING CLERK: Andreia Bardales RDCS
--- NOTE | 2016-04-24 16:25 | P.PN ---
Subjective Principal diagnosis: Atrial fibrillation with rapid ventricular rate, acute diastolic CHF exacerbation This is an 85 rolled female one of my patient with a previous medical history significant for two-vessel CAD post non-ST elevation [place] back in 2013 with the PCI of the mid to distal RCA, and totally occluded LAD chronically, hypertension and hypertensive cardio vascular disease with left ventricular hypertrophy, GERD, diverticular disease, urinary incontinence, chronic systolic heart failure, I haven't seen the patient for the past 8 months, patient was supposed to be following with however she dropped her follow-up appointment as well patient apparently stated that she has been doing fine up until 4 days ago when she developed to have increased thumping in her heart associated with increased shortness breath with minimal swelling in both lower extremities, as a stated earlier patient has not been following up with me in the office for the past 8 months, patient ended up coming to the emergency department at [facility] yesterday she was found to be in atrial fibrillation with rapid ventricular response, she was started on Cardizem drip and she was admitted to the hospital for acute systolic heart failure. Echocardiogram will be obtained, pending 04/24: Patient is doing well no palpitations no chest pain. No current GI bleed. Dr. Brown has seen her and evaluation of her prior history of GI bleeding. Said recommendation is accepted with the proposed anticoagulation. Discussed the risk with the patient and he she is willing to be on anticoagulation with close monitoring of her hemoglobin. This will be started at eliquis 2.5 mg twice a day, Lovenox will be discontinued Objective - Vital Signs Vital signs: Vital Signs Temp 97.2 F L 04/24/16 11:54 Pulse 85 04/24/16 11:54 Resp 18 04/24/16 11:54 BP 111/60 04/24/16 11:54 Pulse Ox 93 L 04/24/16 11:54 Intake & Output 04/23/16 04/24/16 04/24/16 18:59 06:59 18:59 Intake Total 377.417 240 Output Total 800 200 Balance -422.583 40 Weight 67.6 kg 67.4 kg Intake: IV 40 Diltiazem 125 mg In 40 Sodium Chloride 0.9% 100 ml @ 5 MG/HR 5 mls/hr IV .Q24H ONE Rx#:[id number] Intake, IV Titration 97.417 Amount Diltiazem 125 mg In 97.417 Sodium Chloride 0.9% 100 ml @ 5 MG/HR 5 mls/hr IV .Q24H ONE Rx#:[id number] Oral 240 240 Output: Urine 800 200 Other: # Voids 1 1 # Bowel Movements 1 - Constitutional General appearance: Present: average body habitus, cooperative, no acute distress - EENT Eyes: Present: anicteric sclerae, PERRLA, dentition normal, normal appearance ENT: Present: hearing grossly normal, NA/AT, normal oropharynx - Neck Neck: Present: normal ROM - Respiratory Respiratory: bilateral: CTA, negative: diminished, dullness, rales, rhonchi, wheezing, prolonged expiration - Cardiovascular Rhythm: regular Heart sounds: normal: S1, S2 Abnormal Heart Sounds: Absent: systolic murmur, diastolic murmur, rub, S3 Gallop , S4 Gallop, click, other - Gastrointestinal General gastrointestinal: Present: soft - Integumentary Integumentary: Present: normal, normal turgor - Neurologic Neurologic: Absent: CNII-XII intact, focal deficits - Musculoskeletal Musculoskeletal: Present: gait normal - Psychiatric Psychiatric: Present: A&O x's 3, appropriate affect, intact judgment & insight - Labs CBC & Chem 7: 04/24/16 05:25 04/24/16 05:25 Labs: Abnormal Lab Results - Last 24 Hours (Table) 04/24/16 04/24/16 Range/Units 05:25 05:25 Plt Count 146 L (150-450) k/uL Carbon Dioxide 31 H (22-30) mmol/L BUN 27 H (7-17) mg/dL Creatinine 1.13 H (0.52-1.04) mg/dL AST 37 H (14-36) U/L Assessment and Plan Plan: 1. Acute systolic heart failure on chronic systolic heart failure. Start Lasix 40 mg IV push every 12 hours, metoprolol 50 mg orally twice every day, lisinopril 5 mg orally once every day, spironolactone 12.5 mg orally once every day, potassium supplement, echocardiogram for evaluation of LV function, input and output and daily weight, portable chest x-ray tomorrow morning, spoke with her daughter the bedside. Lasix transitioned to oral pills 40 mg daily 2. Atrial fibrillation with rapid ventricular response. Continue metoprolol 50 mg orally twice every day, continue Lovenox 70 mg subcutaneously every 12 hours, switched to Eliquis 2.5 mg orally twice every 24 hours. 3. Two-vessel CAD post-PCI of the RCA and a chronically occluded LAD. Continue metoprolol 50 mg orally twice every day, lisinopril 5 mg orally once every day, Lipitor 80 mg orally once every day, aspirin 325 mg orally once every day. 4. Hypertension and hypertensive cardiovascular disease. Continue lisinopril 5 mg orally once every day, metoprolol 50 mg orally twice every day. 5. Hyperlipidemia. Continue Lipitor 40 mg orally once every day. 6. Urinary incontinence. Monitor the patient. 7. Osteoarthritis. Clinically stable. 8. DVT prophylaxis. On Lovenox 9. GI prophylaxis. Continue patient on Protonix 40 mg orally once every day. 10. Recurrent lower GI bleeding with smears of blood on rectal wipes. Patient was seen by gastroenterology with recommendations to maintain current anticoagulation., Recommendations will need to be finalized regarding oral anticoagulation with factor X A inhibitors. Patient had massive GI bleeding in the past when she had her heart attack using aspirin and Plavix,. Initiate Eliquis2.5 mg twice a day and monitor her hemoglobin closely over the next few days. Patient is aware of these risks and is willing to put anticoagulation in perspective for stroke prophylaxis. 10. Patient is a full code. 11. Admitted to inpatient, estimated length of stay 2 midnights.
[2016-04-24] MEDS: MIRTAZAPINE 15 MG TAB PO SCH (21:55)
[2016-04-24] MEDS: APIXABAN 2.5 MG TABLET PO SCH (21:55)
[2016-04-24] MEDS: ATORVASTATIN 80 MG TAB PO SCH (21:55)
[2016-04-25 05:01] VITALS: PULSE 88
[2016-04-25 06:17] LABS: Basophils % (A) 1 %; CH 29.6; CHCM 32.6; Eosinophils # (A) 0.1 k/uL (0-0.7); Eosinophils % (A) 2 %; HCT 43.4 % (34.0-46.0); HDW 2.78; HGB 13.7 gm/dL (11.4-16.0); Luc # (Auto) 0.24; Luc % (Auto) 4; Lymphocytes # (A) 1.4 k/uL (1.0-4.8); Lymphocytes % (A) 24 %; MCH 28.8 pg (25.0-35.0); MCHC 31.5 g/dL (31.0-37.0); MCV 91.3 fL (80.0-100.0); Mean Platelet Volume 8.5; Monocytes # (A) 0.6 k/uL (0-1.0); Monocytes % (A) 10 %; Neutrophils # (A) 3.3 k/uL (1.3-7.7); Neutrophils % (A) 59 %; RBC 4.76 m/uL (3.80-5.40); RDW 15.3 % (11.5-15.5); WBC 5.6 k/uL (3.8-10.6); WBC (Perox) 5.92
[2016-04-25 06:29] LABS: Potassium 4.3 mmol/L (3.5-5.1)
[2016-04-25] MEDS: CALCIUM CARBONATE 500 MG CHEWABLE PO SCH (08:04)
[2016-04-25] MEDS: MAGNESIUM OXIDE 250 MG TAB PO SCH (08:04)
[2016-04-25] MEDS: POTASSIUM CHLORIDE ER 20 MEQ TAB.ER PO SCH (08:04)
[2016-04-25] MEDS: LISINOPRIL 5 MG TAB PO SCH (08:04)
[2016-04-25] MEDS: MULTIVITAMINS, THERA 1 EACH TAB PO SCH (08:05)
[2016-04-25] MEDS: APIXABAN 2.5 MG TABLET PO SCH (08:05)
[2016-04-25] MEDS: METOPROLOL TARTRATE 50 MG TAB PO SCH (08:05)
[2016-04-25] MEDS: ASPIRIN 325 MG TAB PO SCH (08:05)
[2016-04-25] MEDS: SPIRONOLACTONE 25 MG TAB PO SCH (08:05)
[2016-04-25] MEDS: ZINC GLUCONATE 50 MG TAB PO SCH (08:05)
[2016-04-25] MEDS ORDERED: FUROSEMIDE 40 MG TAB PO SCH (09:00)
[2016-04-25 11:27] VITALS: BP 115/70; TEMP 97.7
--- NOTE | 2016-04-25 11:53 | PN ---
DATE OF SERVICE: 04/25/2016 Patient is an 85-year-old pleasant lady admitted to the hospital with A. fib with rapid ventricular heart rate, as started on IV Cardizem drip as well as started on Eliquis 2 days ago. The reason for consult is for intermittent rectal bleeding for the last 2 years' duration and she has bright red blood per rectum almost on a daily basis, which she often sees on the toilet tissue paper. She did have a colonoscopy 4 or 5 years ago but results are not available at the time of this dictation. In the meantime, after she was started on Eliquis, she did not notice any significant change in the rectal bleeding. She denies any abdominal pain. No nausea or vomiting. On physical examination, appears comfortable, in no apparent distress. Vitals signs are stable. Blood pressure is 127/79, pulse rate 90, temperature 97.6. HEENT EXAMINATION: Unremarkable. Conjunctivae pink. Sclerae are nonicteric. Oral cavity no lesions. NECK: No JVD or lymph node enlargement. Chest was clear to auscultation. HEART: Regular rate and rhythm. Abdomen is soft, nontender, nondistended. Liver and spleen are not palpable. Bowel sounds are positive. No organomegaly. EXTREMITIES: No pedal edema. SKIN: No rashes. NEURO: Alert and oriented x3. No focal deficits. Labs from today, hemoglobin is 13.7, WBC 5.6. Platelets 146, BUN 37, creatinine 1.20. IMPRESSION: Intermittent rectal bleeding for the last 2 years' duration. Currently, her hemoglobin remains stable. She was started on her Eliquis 2 days ago for atrial fibrillation and so far, does not have any significant ongoing rectal bleeding. The patient did mention that she had a colonoscopy a few years ago, but no records available so far. Since she was started on the Eliquis, there is no significant change in the rectal bleeding that she has been noticing. RECOMMENDATIONS: 1. Continue with the current anticoagulation regimen. 2. I had a lengthy discussion with the patient and I suggested that in the future if she has more bleeding, she was advised to contact me so we can consider proceeding with a colonoscopy on an outpatient basis if indicated. While she is in the hospital, will continue to follow her closely. Thank you for this consultation.
--- NOTE | 2016-04-25 14:04 | P.PN ---
Subjective Principal diagnosis: Atrial fibrillation/CHF This is a pleasant 85-year-old female patient with a past medical history significant for CAD and prior stenting of the RCA was performed in 2013 , valvular heart disease, hypertension, and dyslipidemia, presented to the hospital complaining of shortness of breath and rapid heart beats. The patient was found to be in A. fib with RVR which seems to be of new onset. Also she was diagnosed was mild CHF and started on Lasix IV. I'll follow-up with her today, she continues to be feeding heart racing and heart fluttering with walking to the bathroom. The resting heart rate has been between 100 210 beats permanent and she continues to be in atrial fibrillation. The blood pressure is within normal limits. the heart rate has been controlled after the dose of metoprolol was increased. Also the patient was started on anticoagulation. Objective - Vital Signs Vital signs: Vital Signs Temp 97.7 F 04/25/16 11:24 Pulse 88 04/25/16 11:24 Resp 18 04/25/16 11:24 BP 115/70 04/25/16 11:24 Pulse Ox 96 04/25/16 11:24 Intake & Output 04/24/16 04/25/16 04/25/16 18:59 06:59 18:59 Intake Total 600 360 Output Total 200 Balance 400 360 Weight 67 kg Intake: Oral 600 360 Output: Urine 200 Other: # Voids 0 2 1 # Bowel Movements 0 - Constitutional General appearance: Present: no acute distress - Respiratory Respiratory: bilateral: diminished - Cardiovascular Rhythm: irregularly irregular Heart sounds: normal: S1, S2 Abnormal Heart Sounds: Present: systolic murmur - Labs CBC & Chem 7: 04/25/16 05:45 04/25/16 05:45 Labs: Abnormal Lab Results - Last 24 Hours (Table) 04/25/16 04/25/16 Range/Units 05:45 05:45 Plt Count 146 L (150-450) k/uL BUN 37 H (7-17) mg/dL Creatinine 1.20 H (0.52-1.04) mg/dL Assessment and Plan Plan: Assessment #1 A. fib with controlled heart rate #2 mild congestive heart failure exacerbation and known if it's due to systolic or diastole dysfunction. #3 valvular heart disease #4 systemic hypertension Plan #1 the patient can be discharged home
--- NOTE | 2016-05-04 16:27 | P.DS ---
Providers Date of admission: 04/22/16 15:09 Expected date of discharge: 04/25/16 Attending physician: Greta Esparza Consults: 04/23/16 16:15 Consult Physician Routine Consulting Provider: Percy Dover Consult Reason/Comments: history of GI bleed, new onset afib Do you want consulting provider notified?: Yes Primary care physician: Greta Esparza Hospital Course: This is an 85 -year-old female one of my patient with a previous medical history significant for two-vessel CAD post non-ST elevation [place] back in 2013 with the PCI of the mid to distal RCA, and totally occluded LAD chronically , hypertension and hypertensive cardio vascular disease with left ventricular hypertrophy, GERD, diverticular disease, urinary incontinence, chronic systolic heart failure, I haven't seen the patient for the past 8 months, patient was supposed to be following with however she dropped her follow-up appointment as well patient apparently stated that she has been doing fine up until 4 days ago when she developed to have increased thumping in her heart associated with increased shortness breath with minimal swelling in both lower extremities, as a stated earlier patient has not been following up with me in the office for the past 8 months, patient ended up coming to the emergency department at [facility] yesterday she was found to be in atrial fibrillation with rapid ventricular response, she was started on Cardizem drip and she was admitted to the hospital for acute systolic heart failure. Echocardiogram will be obtained, pending 04/24: Patient is doing well no palpitations no chest pain. No current GI bleed. Dr. Brown has seen her and evaluation of her prior history of GI bleeding. Said recommendation is accepted with the proposed anticoagulation. Discussed the risk with the patient and he she is willing to be on anticoagulation with close monitoring of her hemoglobin. This will be started at eliquis 2.5 mg twice a day, Lovenox will be discontinued 04/25: Patient's heart rate has been controlled at recent increase of metoprolol. Patient started on eliquis. She has been cleared for discharge by cardiology. Patient will be discharged home today in stable condition. Discharge diagnoses: 1. Acute systolic heart failure on chronic systolic heart failure. 2. Chronic atrial fibrillation with rapid ventricular response. 3. Two-vessel CAD post-PCI of the RCA and a chronically occluded LAD. 4. Hypertension and hypertensive cardiovascular disease. 5. Hyperlipidemia. 6. Urinary incontinence. 7. Osteoarthritis, primary generalized. 8. Recurrent lower GI bleeding with smears of blood on rectal wipes. Patient was seen by gastroenterology with recommendations to maintain current anticoagulation., Recommendations will need to be finalized regarding oral anticoagulation with factor X A inhibitors. Patient had massive GI bleeding in the past when she had her heart attack using aspirin and Plavix,. Initiate Eliquis2.5 mg twice a day and monitor her hemoglobin closely over the next few days. Patient is aware of these risks and is willing to start anticoagulation in perspective for stroke prophylaxis. Discharge plan: Home with [facility] Impression and plan of care have been directed as dictated by the signing physician. Kenia Elkins nurse practitioner acting as scribe for signing physician. Patient Condition at Discharge: Good Plan - Discharge Summary New Discharge Prescriptions: Apixaban [Eliquis] 2.5 mg PO BID #60 tablet Furosemide [Lasix] 40 mg PO DAILY #30 tab Spironolactone [Aldactone] 12.5 mg PO DAILY #60 tab Discharge Medication List Biotin 5 mg PO DAILY 08/22/13 [History] Calcium/Magnesium/Zinc [Xbaeqbt-Ecwjuekkm-Kgzr Tablet] 1 tab PO DAILY 08/22/13 [ History] Lutein 10 mg PO DAILY 08/22/13 [History] Multivitamins, Thera [Multivitamin] 1 tab PO DAILY 08/22/13 [History] Ubidecarenone [Coenzyme Q10] 100 mg PO DAILY 08/22/13 [History] Atorvastatin [Lipitor] 80 mg PO HS #30 tab 08/30/13 [Rx] Lisinopril [Zestril] 5 mg PO DAILY #30 tab 08/30/13 [Rx] Aspirin EC [Ecotrin Low Dose] 81 mg PO DAILY 04/22/16 [History] Ginkgo Biloba [place] Extract [Ginkgo] 60 mg PO DAILY 04/22/16 [History] Mirtazapine [Remeron] 15 mg PO HS 04/22/16 [History] Apixaban [Eliquis] 2.5 mg PO BID #60 tablet 04/25/16 [Rx] Furosemide [Lasix] 40 mg PO DAILY #30 tab 04/25/16 [Rx] Magnesium Oxide [Mag-Ox] 250 mg PO DAILY tab 04/25/16 [Rx] Metoprolol Tartrate [Lopressor] 50 mg PO TID tab 04/25/16 [Rx] Multivitamins, Thera [Multivitamin] 1 each PO DAILY tab 04/25/16 [Rx] Spironolactone [Aldactone] 12.5 mg PO DAILY #60 tab 04/25/16 [Rx] Zinc Gluconate [Zinc] 50 mg PO DAILY tab 04/25/16 [Rx] Follow up Appointment(s)/Referral(s): Nancy Ronquillo MD [STAFF PHYSICIAN] - 2 Weeks (call office tuesday for appt office closed) Greta Esparza MD [Primary Care Provider] - 1-2 days (call office tuesday for appt moffice closed) [facility], [NON-STAFF] - Patient Instructions/Handouts: Atrial Fibrillation (GEN) Discharge Disposition: HOME WITH HOME HEALTH SERVICES
== END 2016-04-25 13:41 | disposition home health service (06) | DRG 308 ==
LOC: EC 12:25 → 6SEL 15:09
PROVIDERS: ADMIT Internal Medicine; ATTEND Internal Medicine
DX: I48.2 Chronic atrial fibrillation (principal); I50.23 Acute on chronic systolic (congestive) heart failure; I25.82 Chronic total occlusion of coronary artery; J44.9 Chronic obstructive pulmonary disease, unspecified; K62.5 Hemorrhage of anus and rectum; E11.9 Type 2 diabetes mellitus without complications; I11.0 Hypertensive heart disease with heart failure; I48.0 Paroxysmal atrial fibrillation; K57.90 Diverticulosis of intestine, part unspecified, without perforation or abscess without bleeding; K21.9 Gastro-esophageal reflux disease without esophagitis; I25.10 Atherosclerotic heart disease of native coronary artery without angina pectoris; J45.909 Unspecified asthma, uncomplicated; H91.90 Unspecified hearing loss, unspecified ear; E78.5 Hyperlipidemia, unspecified; R32 Unspecified urinary incontinence; M19.90 Unspecified osteoarthritis, unspecified site; F41.9 Anxiety disorder, unspecified; I25.2 Old myocardial infarction; R53.1 Weakness; E78.00 Pure hypercholesterolemia, unspecified; Z90.710 Acquired absence of both cervix and uterus; Z80.9 Family history of malignant neoplasm, unspecified; Z98.42 Cataract extraction status, left eye; Z98.41 Cataract extraction status, right eye; Z96.1 Presence of intraocular lens; Z79.82 Long term (current) use of aspirin; Z95.5 Presence of coronary angioplasty implant and graft; Z82.0 Family history of epilepsy and other diseases of the nervous system; Z82.49 Family history of ischemic heart disease and other diseases of the circulatory system; Z79.899 Other long term (current) drug therapy; Z78.0 Asymptomatic menopausal state; Z86.19 Personal history of other infectious and parasitic diseases; Z87.448 Personal history of other diseases of urinary system; Z91.19 Patient's noncompliance with other medical treatment and regimen; Z87.19 Personal history of other diseases of the digestive system
CPT/HCPCS: 36415; 71010; 80048; 80053; 83735; 84443; 84484; 85025; 85610; 85730; 93005; 93306; 96365; 96366; 96372; 96376; 99291

== ENCOUNTER 2016-07-05 10:20 | Emergency (ER) | payer MEDICARE ==
[2016-07-05] MEDS ORDERED: SODIUM CHLORIDE 0.9% 1,000 ML IV STA (10:52)
[2016-07-05] MEDS ORDERED: METOPROLOL TARTRATE 50 MG TAB PO STA (10:56)
[2016-07-05 11:08] LABS: Anisocytosis Slight; Basophils % (A) 1 %; CH 30.2; CHCM 33.1; Eosinophils # (A) 0.1 k/uL (0-0.7); Eosinophils % (A) 2 %; HCT 44.3 % (34.0-46.0); HDW 2.89; HGB 14.8 gm/dL (11.4-16.0); Luc # (Auto) 0.24; Luc % (Auto) 4; Lymphocytes # (A) 1.1 k/uL (1.0-4.8); Lymphocytes % (A) 17 %; MCH 30.5 pg (25.0-35.0); MCHC 33.4 g/dL (31.0-37.0); MCV 91.6 fL (80.0-100.0); Mean Platelet Volume 9.1; Monocytes # (A) 0.5 k/uL (0-1.0); Monocytes % (A) 8 %; Neutrophils # (A) 4.7 k/uL (1.3-7.7); Neutrophils % (A) 70 %; RBC 4.84 m/uL (3.80-5.40); RDW 16.1 % (11.5-15.5); WBC 6.7 k/uL (3.8-10.6); WBC (Perox) 6.57
[2016-07-05 11:18] LABS: ALT 45 U/L (9-52); AST 44 U/L (14-36); Alkaline Phosphatase 99 U/L (38-126); Anion Gap 12 mmol/L; Blood Urea Nitrogen 25 mg/dL (7-17); Calcium 9.7 mg/dL (8.4-10.2); Carbon Dioxide 22 mmol/L (22-30); Chloride 107 mmol/L (98-107); Glucose 113 mg/dL (74-99); Non-African American GFR(MDRD) 52 (>60 ml/min/1.73 sqM); Potassium 4.9 mmol/L (3.5-5.1); Sodium 141 mmol/L (137-145); Total Bilirubin 1.1 mg/dL (0.2-1.3); Total Protein 6.9 g/dL (6.3-8.2)
--- NOTE | 2016-07-05 11:22 | XR ---
EXAMINATION TYPE: XR chest 2V DATE OF EXAM: 07/05/2016 11:12 AM COMPARISON: Prior chest x-ray 22 April 2016 HISTORY: Dysrhythmia, shortness of breath TECHNIQUE: Frontal and lateral views of the chest are obtained. FINDINGS: Retrocardiac density persists consistent left lower lobe atelectasis versus pneumonia, the re is obscured left hemidiaphragm. No pneumothorax. Biapical pleural thickening is again noted. There are overlying cardiac leads and the patient is rotated. Pulmonary vascularity and efrem not significa ntly changed. Nodular density in the right mid lung may be calcified. Heart size may be accentuated b y rotation. IMPRESSION: Similar findings to prior exam correlate for lower lobe atelectasis versus pneumonia, fo llow-up recommended. There are interstitial lung changes.
[2016-07-05 11:23] VITALS: RESP 20
[2016-07-05 11:30] LABS: Creatine Kinase 40 U/L (30-135)
[2016-07-05 11:38] LABS: INR 1.1 (<1.1); Partial Thromboplastin Time 24.7 sec (22.0-30.0); Prothrombin Time 11.4 sec (9.0-12.0)
[2016-07-05 11:42] LABS: Creatine Kinase MB 1.2 ng/mL (0.0-2.4); Troponin I <0.012 ng/mL (0.000-0.034)
[2016-07-05] MEDS ORDERED: FUROSEMIDE 10 MG/ML 4 ML VIAL IV STA (12:55)
[2016-07-05] MEDS ORDERED: LEVOFLOXACIN 750 MG TAB PO STA (13:45)
--- NOTE | 2016-07-05 13:51 | ED ---
Arrhythmia/Palpitations HPI - General Chief Complaint: Arrhythmia/Palpitations Stated Complaint: PALPATATIONS, DIZZINESS Time Seen by Provider: 07/05/16 10:33 Source: patient Mode of arrival: wheelchair Limitations: no limitations - History of Present Illness Initial Comments: Complaining about the palpitation, she noticed heart rate was racing and was skipping a beat, she has been pretty compliant with her medications she is on a blood thinners and she also has a medication prescription. Rate she's been very compliant about the nausea no vomiting the denies any chest pain and it does not hurt when she takes a deep breaths he has been coughing - Related Data Home Medications Medication Instructions Recorded Confirmed Biotin 5 mg PO DAILY 08/22/13 07/05/16 Lutein 10 mg PO DAILY 08/22/13 07/05/16 Multivitamins, Thera [Multivitamin 1 tab PO DAILY 08/22/13 07/05/16 (formulary)] Ubidecarenone [Coenzyme Q10] 100 mg PO DAILY 08/22/13 07/05/16 Aspirin EC [Ecotrin Low Dose] 81 mg PO DAILY 04/22/16 07/05/16 Mirtazapine [Remeron] 15 mg PO HS 04/22/16 07/05/16 Cholecalciferol [Vitamin D3] 2,000 unit PO DAILY 07/05/16 07/05/16 Furosemide [Furosemide] 20 mg PO BID 07/05/16 07/05/16 Spironolactone [Aldactone] 25 mg PO DAILY 07/05/16 07/05/16 Previous Rx's Medication Instructions Recorded Lisinopril [Zestril] 5 mg PO DAILY #30 tab 08/30/13 Apixaban [Eliquis] 2.5 mg PO BID #60 tablet 04/25/16 Magnesium Oxide [Mag-Ox] 250 mg PO DAILY tab 04/25/16 Metoprolol Tartrate [Lopressor] 50 mg PO TID tab 04/25/16 Allergies Allergy/AdvReac Type Severity Reaction Status Date / Time aspirin Allergy Unknown Verified 07/05/16 11:22 caffeine Allergy Unknown Verified 07/05/16 11:22 sulfanilamide Allergy Unknown Verified 07/05/16 11:22 Review of Systems ROS Statement: Those systems with pertinent positive or pertinent negative responses have been documented in the HPI. ROS Other: All systems not noted in ROS Statement are negative. Past Medical History Past Medical History: Asthma, Hearing Disorder / Deafness, Hyperlipidemia, Hypertension Additional Past Medical History / Comment(s): Kidney infection Last Myocardial Infarction Date:: 2013 History of Any Multi-Drug Resistant Organisms: None Reported Past Surgical History: Bladder Surgery, Hysterectomy, Tonsillectomy Additional Past Surgical History / Comment(s): Cataract removal with implants, colonoscopy Past Anesthesia/Blood Transfusion Reactions: No Reported Reaction Date of Last Stent Placement:: 08-29-13 Past Psychological History: Anxiety Smoking Status: Never smoker Past Alcohol Use History: None Reported Past Drug Use History: None Reported - Past Family History Father Additional Family Medical History / Comment(s): IN SLEEP IN ECF Sister(s) Family Medical History: Seizure Disorder Daughter(s) Family Medical History: No Reported History (Patient has 2 daughters no major medical problems.) Mother Family Medical History: Cancer Additional Family Medical History / Comment(s): HEART DISEASE General Exam - General Exam Comments Initial Comments: General: The patient is awake and alert, in no distress, and does not appear acutely ill. Skin: Skin is warm and dry and no rashes or lesions are noted. Eye: Pupils are equal, round and reactive to light, extra-ocular movements are intact; there is normal conjunctiva bilaterally. Ears, nose, mouth and throat: There are moist mucous membranes and no oral lesions. Neck: The neck is supple, there is no tenderness or JVD. Cardiovascular: There is A. fib, ventricular rate is around 110 Respiratory: To auscultation bilateral, noticed some crackles at the bases Gastrointestinal: Soft, non-distended, non-tender abdomen without masses or organomegaly noted. There is no rebound or guarding present. Bowel sounds are unremarkable. Back: There is no tenderness to palpation in the midline. There is no obvious deformity. Musculoskeletal: Normal ROM, no tenderness, There is no pedal edema. There is no calf tenderness or swelling. No cords were appreciated. Neurological: CN II-XII intact, Cranial nerves III through XII are intact. There are no obvious motor or sensory deficits. Coordination appears grossly intact. Speech is normal. Psychiatric: Cooperative, appropriate mood & affect, normal judgment. Limitations: no limitations Course Vital Signs 07/05/16 07/05/16 07/05/16 10:23 11:22 12:58 Temperature 97.5 F L Pulse Rate 97 110 H 90 Respiratory 17 20 20 Rate Blood Pressure 154/76 169/87 156/73 O2 Sat by Pulse 95 95 98 Oximetry I spoke with the Dr. Esparza about to chew A, Dr. Esparza no oropharynx and a he recommended that we evaluate her lungs heart and he advised us to give her some day And make sure she recently. She does, deviated labs are reviewed along with the imaging CBC, INR, TSH, compressive metabolic panel all within normal range I EKG did confirm mom a defibrillation with RVR she was giving some metoprolol in the ER he denies she did go to bathroom after she cut her Lasix chest x-ray showed some pneumonia will get her started on Levaquin 750 mg once in the ER] 500 mg daily for next 7 days and she'll see Dr. Washburn EKG Findings - EKG Comments: EKG Findings:: Heart rate is 100, his atrial fibrillation with a rapid ventricular response DE interval, QRS duration is 88 QT/QTc is 380/426 the review of this EKG does not reveal any ST elevation or ST depression noticed a slight ST depression in lead V6 Medical Decision Making - Lab Data Result diagrams: 07/05/16 10:44 07/05/16 10:44 Lab Results 07/05/16 07/05/16 07/05/16 Range/Units 10:44 10:44 10:44 WBC 6.7 (3.8-10.6) k/uL RBC 4.84 (3.80-5.40) m/uL Hgb 14.8 (11.4-16.0) gm/dL Hct 44.3 (34.0-46.0) % MCV 91.6 (80.0-100.0) fL MCH 30.5 (25.0-35.0) pg MCHC 33.4 (31.0-37.0) g/dL RDW 16.1 H (11.5-15.5) % Plt Count 150 (150-450) k/uL Neutrophils % 70 % Lymphocytes % 17 % Monocytes % 8 % Eosinophils % 2 % Basophils % 1 % Neutrophils # 4.7 (1.3-7.7) k/uL Lymphocytes # 1.1 (1.0-4.8) k/uL Monocytes # 0.5 (0-1.0) k/uL Eosinophils # 0.1 (0-0.7) k/uL Basophils # 0.0 (0-0.2) k/uL Anisocytosis Slight PT (9.0-12.0) sec INR (<1.1) APTT (22.0-30.0) sec Sodium 141 (137-145) mmol/L Potassium 4.9 (3.5-5.1) mmol/L Chloride 107 (98-107) mmol/L Carbon Dioxide 22 (22-30) mmol/L Anion Gap 12 mmol/L BUN 25 H (7-17) mg/dL Creatinine 1.01 (0.52-1.04) mg/dL Est GFR (MDRD) Af Amer >60 (>60 ml/min/1.73 sqM) Est GFR (MDRD) Non-Af 52 (>60 ml/min/1.73 sqM) Glucose 113 H (74-99) mg/dL Calcium 9.7 (8.4-10.2) mg/dL Magnesium 2.0 (1.6-2.3) mg/dL Total Bilirubin 1.1 (0.2-1.3) mg/dL AST 44 H (14-36) U/L ALT 45 (9-52) U/L Alkaline Phosphatase 99 (38-126) U/L Total Creatine Kinase 40 (30-135) U/L CK-MB (CK-2) 1.2 (0.0-2.4) ng/mL CK-MB (CK-2) Rel Index 3.0 Troponin I <0.012 (0.000-0.034) ng/mL Total Protein 6.9 (6.3-8.2) g/dL Albumin 3.8 (3.5-5.0) g/dL TSH 0.489 (0.465-4.680) mIU/L 07/05/16 Range/Units 10:44 WBC (3.8-10.6) k/uL RBC (3.80-5.40) m/uL Hgb (11.4-16.0) gm/dL Hct (34.0-46.0) % MCV (80.0-100.0) fL MCH (25.0-35.0) pg MCHC (31.0-37.0) g/dL RDW (11.5-15.5) % Plt Count (150-450) k/uL Neutrophils % % Lymphocytes % % Monocytes % % Eosinophils % % Basophils % % Neutrophils # (1.3-7.7) k/uL Lymphocytes # (1.0-4.8) k/uL Monocytes # (0-1.0) k/uL Eosinophils # (0-0.7) k/uL Basophils # (0-0.2) k/uL Anisocytosis PT 11.4 (9.0-12.0) sec INR 1.1 (<1.1) APTT 24.7 (22.0-30.0) sec Sodium (137-145) mmol/L Potassium (3.5-5.1) mmol/L Chloride (98-107) mmol/L Carbon Dioxide (22-30) mmol/L Anion Gap mmol/L BUN (7-17) mg/dL Creatinine (0.52-1.04) mg/dL Est GFR (MDRD) Af Amer (>60 ml/min/1.73 sqM) Est GFR (MDRD) Non-Af (>60 ml/min/1.73 sqM) Glucose (74-99) mg/dL Calcium (8.4-10.2) mg/dL Magnesium (1.6-2.3) mg/dL Total Bilirubin (0.2-1.3) mg/dL AST (14-36) U/L ALT (9-52) U/L Alkaline Phosphatase (38-126) U/L Total Creatine Kinase (30-135) U/L CK-MB (CK-2) (0.0-2.4) ng/mL CK-MB (CK-2) Rel Index Troponin I (0.000-0.034) ng/mL Total Protein (6.3-8.2) g/dL Albumin (3.5-5.0) g/dL TSH (0.465-4.680) mIU/L Disposition Clinical Impression: Atrial fibrillation with RVR, Pneumonia Disposition: HOME SELF-CARE Condition: Good Instructions: Palpitations (ED)
[2016-07-05 13:56] VITALS: BP 152/68; PULSE 96; TEMP 96.9
== END 2016-07-05 14:20 | disposition home or self-care (01) ==
LOC: EC 10:20
DX: J18.9 Pneumonia, unspecified organism (principal); I48.91 Unspecified atrial fibrillation; R11.0 Nausea; J45.909 Unspecified asthma, uncomplicated; I10 Essential (primary) hypertension; Z79.82 Long term (current) use of aspirin; Z79.899 Other long term (current) drug therapy; Z88.6 Allergy status to analgesic agent; Z88.2 Allergy status to sulfonamides; Z88.8 Allergy status to other drugs, medicaments and biological substances; Z87.448 Personal history of other diseases of urinary system; Z90.89 Acquired absence of other organs
CPT/HCPCS: 36415; 93005; 80053; 82550; 82553; 83735; 84443; 84484; 85025; 85610; 85730; 71020; 99285; 96374; 96361 ×3; J1940

== ENCOUNTER → 2016-07-20 | Outpatient (CLI) | payer MEDICARE ==
--- NOTE | 2016-07-20 22:42 | US ---
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 Abnormal labs TECHNIQUE: Multiple sonographic images of the thyroid gland are obtained. FINDINGS: Right Lobe: 3.2 x 1.1 x 1.9 cm Left Lobe: 2.7 x 0.8 x 1.1 cm Isthmus Thickness: 0.3 cm While there is relatively homogeneous glandular parenchyma, there is slight hyperemia noted. No discrete nodule is identified. Bilateral neck scanned, no evidence of lymphadenopathy. IMPRESSION: 1. Thyroid gland measurements as above. 2. No discrete nodule. 3. While the glandular parenchyma is relatively homogeneous, there is slight hyperemia. Correlate to exclude diffuse thyroiditis.
== END | disposition home or self-care (01) ==
LOC: RADUSWWP 16:34
PROVIDERS: ATTEND Internal Medicine
DX: E05.20 Thyrotoxicosis with toxic multinodular goiter without thyrotoxic crisis or storm (principal)
CPT/HCPCS: 76536

== ENCOUNTER → 2016-08-11 | Outpatient (CLI) | payer MEDICARE ==
--- NOTE | 2016-08-12 12:05 | NM ---
EXAMINATION TYPE: NM thyroid image w uptake DATE OF EXAM: 08/12/2016 11:59 AM COMPARISON: 11/08/2013 HISTORY: Thyroiditis TECHNIQUE: After the intravenous administration of 10.93 mCi Tc 99m Sodium Pertechnetate, thyroid lexy ging is performed 10 minutes post injection. Thyroid iodine uptake is calculated after the oral admin istration of 17 uCi I-131 capsule. FINDINGS: There is normal distribution of activity throughout the gland. The 4 hour iodine uptake is calculated at 14% (normal range 8-14%). The 24-hour iodine uptake is calculated at 35% (normal range 15-35%). IMPRESSION: Normal thyroid scan and uptake.
== END ==
LOC: RADNMMAIN 11:03
PROVIDERS: ATTEND Internal Medicine
DX: E06.9 Thyroiditis, unspecified (principal)
CPT/HCPCS: 78014; A9528; A9512